=== PATIENT | female | born 1950 | race Caucasian/White ===

== ENCOUNTER 2017-04-15 06:45 | Day surgery (SDC) | payer OTHER ==
[~2017-04-15] VITALS: Ht 152.4 cm; Wt 73.5 kg
[2017-04-15] MEDS ORDERED: fentaNYL 0.05 MG/ML VIAL ONE (08:13)
[2017-04-15] MEDS ORDERED: MIDAZOLAM 2 MG/2 ML VIAL ONE (08:13)
[2017-04-15] MEDS ORDERED: LIDOCAINE 2% 100 MG/5 ML UJET TP ONE (08:14)
[2017-04-15] MEDS ORDERED: ASPI81CT2 PO (08:37)
[2017-04-15] MEDS ORDERED: OMEP20TC24 PO (08:37)
[2017-04-15] MEDS ORDERED: CALC-1380 PO (08:37)
[2017-04-15] MEDS ORDERED: [UNRECOGNIZED DRUG - CODE] PO (08:37)
[2017-04-15] MEDS ORDERED: LEVO0.029 PO (08:37)
[2017-04-15] MEDS ORDERED: LOSA25TA22 PO (08:37)
[2017-04-15] MEDS ORDERED: ALEN70SO1 PO (08:37)
[2017-04-15] MEDS ORDERED: CHOL100013 PO (08:37)
[2017-04-15] MEDS ORDERED: METF500T2 PO (08:37)
== END 2017-04-15 09:10 | disposition home or self-care (01) ==
LOC: MDS 06:45 → MMU 06:53 → MDS 09:10
PROVIDERS: ATTEND Internal Medicine Gastroenterology
DX: Z12.11 Encounter for screening for malignant neoplasm of colon (principal); K57.30 Diverticulosis of large intestine without perforation or abscess without bleeding; K64.8 Other hemorrhoids; E66.09 Other obesity due to excess calories; I10 Essential (primary) hypertension; E78.00 Pure hypercholesterolemia, unspecified; E11.9 Type 2 diabetes mellitus without complications; Z79.2 Long term (current) use of antibiotics; Z79.84 Long term (current) use of oral hypoglycemic drugs; Z79.82 Long term (current) use of aspirin; Z79.899 Other long term (current) drug therapy
CPT/HCPCS: 82948; J2250; J3010